=== PATIENT | female | born 1980 | race American Indian/Alaskan Native ===

== ENCOUNTER 2016-09-13 19:49 | Emergency (ER) | payer MEDICAID ==
[2016-09-13] MEDS ORDERED: Alum Hydrox/Mag Hydrox/Simeth 15 ML, Lidocaine 2% 15 ML PO ONE ×2 (20:33)
--- NOTE | 2016-09-13 20:37 | EDM.PDOC ---
ED HPI GI/ABDOMINAL - General Chief Complaint: Chest Pain Stated Complaint: CHEST PAINS Time Seen by Provider: 09/13/16 20:27 Source: Reports: Patient, RN notes reviewed History Limitations: Reports: No limitations - History of Present Illness INITIAL COMMENTS - FREE TEXT/NARRATIVE: 36-year-old female presents emergency department day complaint of epigastric pain, chest pain she states it started about 4:30 this afternoon she had eaten approximately an hour prior he does have a history of a Corie fundoplication as well as extensive history of reflux. After her Corie the use of reflux medication was stopped. 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: Endocrine/Metabolic History: Reports: Obesity/BMI 30+ - Infectious Disease History Infectious Disease History: Reports: Chicken pox - Past Surgical History GI Surgical History: Reports: EGD, Corie fundoplication Other GI Surgeries/Procedures: Corie July 2015 Female Surgical History: Reports: section Endocrine Surgical History: Reports: None Social & Family History - Family History Cardiac: Reports: High cholesterol, Hypertension, [place], Stent Respiratory: Reports: Asthma, COPD OBGYN: Reports: Neurological: Reports: CVA Endocrine/Metabolic: Reports: Diabetes, type I, Obesity/MBI 30+ Dermatologic: Reports: Other (see below) Other Dermatologic Family History: allergy to the sun Oncologic: Reports: Lung - Tobacco Use Smoking Status *Q: Never Smoker Used Tobacco, but Quit: Yes Month Tobacco Last Used: may Second Hand Smoke Exposure: No - Caffeine Use Caffeine Use: Reports: Coffee Caffeine Use Comment: rarely - Alcohol Use Days Per Week of Alcohol Use: 1 Number of Drinks Per Day: 4 Total Drinks Per Week: 4 - Recreational Drug Use Recreational Drug Use: No ED ROS GENERAL - Review of Systems Review Of Systems: See Below Constitutional: Reports: no symptoms HEENT: Reports: No symptoms Respiratory: Reports: No Symptoms Cardiovascular: Reports: No symptoms GI/Abdominal: Reports: Abdominal pain, Black stool. Denies: Nausea, Vomiting : Reports: no symptoms Musculoskeletal: Reports: no symptoms ED EXAM, GI/ABD - Physical Exam Exam: See Below Text/Narrative:: General: Female, mild discomfort secondary to abdominal pain, alert and oriented x3 HEENT: head is atraumatic normocephalic, eyes pupils equal round reactive to light, sclera clear no conjunctivitis appreciated. Ears tympanic membranes clear and gutierrez landmarks and light reflex are present bilaterally canals are clear. Nose no septal deviation, nares are clear, no blood present. Mouth mucosa is moist and pink no erythema or exudate noted in soft palate, tongue is midline uvula is midline, dentition is intact. Neck: Supple no thyromegaly no tracheal deviation. Nodes: Cervical nodes subclavicular nodes nontender no palpable lymphadenopathy noted. Lungs: clear to auscultation bilaterally with symmetrical respirations, no adventitious noise appreciated. CV: Regular rate and rhythm S1 and S2 appreciated no murmurs rubs or gallops noted. Abdomen: Soft, epigastric tenderness, no palpable masses or organomegaly appreciated, no distention no guarding bowel sounds are present, . Neuro: Cranial nerves II through XII grossly intact Skin: Warm and dry, intact Extremities: No lower extremity edema appreciated, . Course - Vital Signs Last Recorded V/S: Last Vital Signs Temp 98.3 F 09/13/16 19:57 Pulse 68 09/13/16 21:06 Resp 16 09/13/16 21:06 BP 143/83 H 09/13/16 21:06 Pulse Ox 97 09/13/16 21:06 - Orders/Labs/Meds Orders: Active Orders 24 hr Category Date Time Status EKG Documentation Completion [RC] ASDIRECTED Care 09/13/16 20:33 Active EKG 12 Lead [EK] Stat Ther 09/13/16 20:33 Ordered Labs: Laboratory Tests 09/13/16 09/13/16 Range/Units 20:57 20:57 WBC 9.9 (4.5-11.0) K/uL RBC 3.79 (3.30-5.50) M/uL Hgb 12.3 (12.0-15.0) g/dL Hct 37.3 (36.0-48.0) % MCV 98 (80-98) fL MCH 33 H (27-31) pg MCHC 33 (32-36) % Plt Count 265 (150-400) K/uL Neut % (Auto) 65 (36-66) % Lymph % (Auto) 26 (24-44) % Crockett % (Auto) 8 H (2-6) % Eos % (Auto) 1 L (2-4) % Baso % (Auto) 0 (0-1) % Sodium 139 L (140-148) mmol/L Potassium 3.4 L (3.6-5.2) mmol/L Chloride 105 (100-108) mmol/L Carbon Dioxide 24 (21-32) mmol/L Anion Gap 13.4 (5.0-14.0) mmol/L BUN 10 (7-18) mg/dL Creatinine 0.6 (0.6-1.0) mg/dL Est Cr Clr Drug Dosing 121.35 mL/min Estimated GFR (MDRD) > 60 (>60) Glucose 85 (74-106) mg/dL Calcium 8.3 L (8.5-10.1) mg/dL Total Bilirubin 0.3 (0.2-1.0) mg/dL AST 32 (15-37) U/L ALT 31 (12-78) U/L Alkaline Phosphatase 113 (46-116) U/L Troponin I < 0.017 (0.000-0.056) ng/mL Total Protein 7.1 (6.4-8.2) g/dL Albumin 3.6 (3.4-5.0) g/dL Globulin 3.5 (2.3-3.5) g/dL Albumin/Globulin Ratio 1.0 L (1.2-2.2) Lipase 174 (73-393) U/L Meds: Medications Discontinued Medications Generic Name Dose Route Start Last Admin Trade Name Freq PRN Reason Stop Dose Admin Al Hydroxide/Mg Hydroxide 15 0 ml 09/13/16 20:33 09/13/16 20:41 ml/ Lidocaine HCl 15 ml PO 09/13/16 20:34 30 ml ONETIME ONE Administration Departure - Departure Time of Disposition: 21:53 Disposition: Home, Self-Care 01 Condition: good Clinical Impression: Epigastric abdominal pain Forms: ED Department Discharge Additional Instructions: Use your acid suppression pills at home, please report to the outpatient surgery area for an upper endoscopy with Dr. Yadav tomorrow morning - My Orders Last 24 Hours: My Active Orders 09/13/16 20:33 EKG Documentation Completion [RC] ASDIRECTED EKG 12 Lead [EK] Stat - Assessment/Plan Last 24 Hours: My Active Orders 09/13/16 20:33 EKG Documentation Completion [RC] ASDIRECTED EKG 12 Lead [EK] Stat Plan: Assessment Acuity = acute Site and laterality = epigastric abdominal pain complicated patient with known history of Corie fundoplication Etiology = suspicious for peptic ulcer disease Manifestations = black tarry stools Location of injury = home Lab values = CBC unremarkable sodium low at 1396 hyponatremia potassium low at 2.4 consistent hypokalemia, troponin is negative EKG demonstrates a sinus rhythm no ST changes Plan Discussed case with Dr. 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 This note was dictated using saambaa voice recognition software please call with any questions.
[2016-09-13 21:08] VITALS: BP 143/83
== END 2016-09-13 22:07 | disposition home or self-care (01) ==
LOC: JP.ED 19:49
DX: R10.13 Epigastric pain (principal); E66.9 Obesity, unspecified; Z68.38 Body mass index [BMI] 38.0-38.9, adult; Z98.890 Other specified postprocedural states
CPT/HCPCS: 36415; 80053; 83690; 84484; 85025; 93005; 99285; A9270; 93010; 99283

== ENCOUNTER 2016-09-14 07:43 | Day surgery (SDC) | payer MEDICAID ==
[2016-09-14] MEDS ORDERED: Midazolam 1 MG/ML 2 ML SDV ONE (07:59)
[2016-09-14] MEDS ORDERED: Propofol 200 MG/20 ML SDV ONE (07:59)
[2016-09-14] MEDS ORDERED: fentaNYL 100 MCG/2 ML SDV ONE (07:59)
[2016-09-14] MEDS ORDERED: Dextrose 5%-Lactated Ringers 1,000 ML IV SCH (08:30)
[2016-09-14] MEDS ORDERED: Glycopyrrolate 0.2 MG/ML 2 ML SYRINGE IVPUSH ONE (10:00)
[2016-09-14] MEDS ORDERED: Pantoprazole 40 MG Vial IVPUSH ONE (12:15)
[2016-09-14 13:17] VITALS: BP 139/88
--- NOTE | 2016-09-19 12:56 | OR ---
DATE OF PROCEDURE: 09/14/2016 PREOPERATIVE DIAGNOSIS: Epigastric pain with recent gastrointestinal bleeding. POSTOPERATIVE DIAGNOSIS: Erosive gastritis. OPERATIVE PROCEDURE: Esophagogastroduodenoscopy with biopsies of antrum for CLOtest. ANESTHESIA: IV sedation. INDICATION FOR PROCEDURE: This 36-year-old female presenting with some ongoing epigastric pain along with some chest pain. She has a history of Corie fundoplication for reflux, which generally has been successful and she had not been on any antisecretory medication. Does note that she has had some intermittent black tarry stools over the last month. The plan is to proceed with an upper GI endoscopy with biopsies as indicated. Potential risks including bleeding and perforation were discussed, and the patient wishes to proceed. DETAILS OF PROCEDURE: The patient was taken to the operating room and placed in the left lateral decubitus position. IV sedation was administered, after which the upper GI endoscope was passed orally through the length of the esophagus into the stomach with retroflexion view of the fundus, thereafter through the pyloric channel and into the proximal duodenum. Findings included a normal hypopharynx, larynx, upper esophageal sphincter, and esophageal body. At the EG junction, the patient was noted to have an intact Corie effect. There is no significant inflammation at the distal esophagus within the stomach. The proximal stomach was unremarkable apart from the Corie effect and then within the antrum, however, there was diffuse redness with several small erosions seen presently covered with fibrinous exudate. No blood or bleeding was seen, but these obviously would be likely source of some recent bleeding, black tarry stools as well as her epigastric discomfort. The pyloric channel and the proximal duodenum were unremarkable and at that point the biopsies were obtained from the antrum and sent for CLOtest for H. pylori. Minimal bleeding from the biopsy site was seen and the procedure was then concluded. The patient will be set up to get Protonix 40 mg IV in the recovery room and then start Protonix 40 mg daily and set up then to followup with DEBBIE Marques in [facility] in about 2 weeks. Luis Yadav MD /[id number]
== END 2016-09-14 13:22 | disposition home or self-care (01) ==
LOC: JP.SDS 07:43
PROVIDERS: ATTEND Surgery
PROC: 0DB78ZX Excision of Stomach, Pylorus, Via Natural or Artificial Opening Endoscopic, Diagnostic (ICD-10-PCS; principal; 2016-09-14)
DX: K29.61 Other gastritis with bleeding (principal)
CPT/HCPCS: 43239; 87081; C9113; J2250; J2704; J3010; J7042

== ENCOUNTER 2017-06-27 19:17 | Emergency (ER) | payer MEDICAID ==
[2017-06-27 19:34] VITALS: BP 151/78
--- NOTE | 2017-06-27 19:53 | EDM.PDOC ---
ED HPI GENERAL MEDICAL PROBLEM - General Chief Complaint: ENT Problem Stated Complaint: DRY SOCKET Time Seen by Provider: 06/27/17 19:31 Source of Information: Reports: Patient - History of Present Illness INITIAL COMMENTS - FREE TEXT/NARRATIVE: Dental Pain; this is a 37 year old female present to ER for evaluation of dental pain. She had a dental extraction on 06/21/2017, was doing well until Tuesday, had increased pain. concerns of "dry socket". reports she is a smoker. denies fever or chills. Onset: Gradual Duration: Day(s): Location: Reports: Other (dental pain) Quality: Reports: Same as Previous Episode (feels like a similar dry socker) Severity: Moderate Improves with: Reports: Medication Worsens with: Reports: Eating Associated Symptoms: Reports: No Other Symptoms Treatments RN INTERN: Reports: Acetaminophen, NSAIDS Right Upper Tooth/Teeth Pain Score (Numeric/FACES): 8 - Related Data Allergies Allergy/AdvReac Type Severity Reaction Status Date / Time No Known Allergies Allergy Verified 06/27/17 19:31 Home Meds: Home Meds Acetaminophen [Tylenol] 650 mg PO ASDIRECTED 06/27/17 [History] Past Medical History - Past Health History Medical/Surgical History: Denies Medical/Surgical History HEENT History: Reports: Impaired Vision Other HEENT History: wears glasses Gastrointestinal History: Reports: Gastritis, GERD Genitourinary History: Reports: 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: Endocrine/Metabolic History: Reports: Obesity/BMI 30+ - Infectious Disease History Infectious Disease History: Reports: Chicken Pox, Measles - Past Surgical History GI Surgical History: Reports: EGD, Corie Fundoplication Female Surgical History: Reports: Section Endocrine Surgical History: Reports: None Social & Family History - Family History Cardiac: Reports: High Cholesterol, Hypertension, [place], Stent Respiratory: Reports: Asthma, COPD OBGYN: Reports: Neurological: Reports: CVA Endocrine/Metabolic: Reports: Diabetes, Type I, Obesity/MBI 30+ Dermatologic: Reports: Other (See Below) Other Dermatologic Family History: allergy to the sun Oncologic: Reports: Lung - Tobacco Use Smoking Status *Q: Heavy Tobacco Smoker Years of Tobacco use: 5 Packs/Tins Daily: 0.5 Used Tobacco, but Quit: Yes Month Tobacco Last Used: May Second Hand Smoke Exposure: Yes - Caffeine Use Caffeine Use: Reports: Coffee, Energy Drinks, Soda Caffeine Use Comment: rarely - Alcohol Use Days Per Week of Alcohol Use: 1 Number of Drinks Per Day: 4 Total Drinks Per Week: 4 - Recreational Drug Use Recreational Drug Use: No ED ROS ENT - Review of Systems Review Of Systems: See Below Constitutional: Reports: Other (dental pain) HEENT: Reports: Dental Pain Respiratory: Reports: No Symptoms Cardiovascular: Reports: No Symptoms GI/Abdominal: Reports: No Symptoms Skin: Reports: No Symptoms Neurological: Reports: No Symptoms Psychiatric: Reports: No Symptoms Hematologic/Lymphatic: Reports: No Symptoms Immunologic: Reports: No Symptoms ED EXAM, ENT - Physical Exam Exam: See Below Exam Limited By: No Limitations General Appearance: Alert, WD/WN, No Apparent Distress Eye Exam: Bilateral Eye: Normal Inspection Ears: Normal External Exam Nose: Normal Inspection Mouth/Throat: Other (extraction noted to right upper molar, area is firm, pink, no drainage noted. no clot is seen at extraction point. tender to exam. ) Head: Atraumatic, Normocephalic Neck: Normal Inspection, Supple, Non-Tender Respiratory/Chest: No Respiratory Distress Neurological: Alert, No Motor/Sensory Deficits Psychiatric: Normal Affect, Normal Mood Skin: Warm Lymphatic: No Adenopathy Course - Vital Signs Last Recorded V/S: Last Vital Signs Temp 36.1 C 06/27/17 19:35 Pulse 63 06/27/17 19:35 Resp 18 06/27/17 19:35 BP 151/78 H 06/27/17 19:35 Pulse Ox 99 06/27/17 19:35 - Re-Assessments/Exams Free Text/Narrative Re-Assessment/Exam: 06/27/17 20:07 will give hydrocodone for pain control, continue NSAIDS, referral to [facility] in am. Departure - Departure Time of Disposition: 20:08 Disposition: Home, Self-Care 01 Condition: Good Clinical Impression: Pain, dental - Discharge Information Referrals: PCP,None [Primary Care Provider] - Forms: ED Department Discharge Care Plan Goals: Dental Pain -Hydrocodone 5-325mg take one tablet every 4 to 6 hr prn pain#4 -continue Motrin every 8 hours as needed for pain avoid smoking, drinking out of straw, flushing with solution. leave alone til evaluated by Dentist referral to [facility] in am for evaluation and treatmetn. - Problem List & Annotations (1) Pain, dental SNOMED Code(s): 26907952 Code(s): K08.89 - OTHER SPECIFIED DISORDERS OF TEETH AND SUPPORTING STRUCTURES Status: Acute Priority: Medium Current Visit: Yes - Problem List Review Problem List Initiated/Reviewed/Updated: Yes - Assessment/Plan Plan: Dental Pain -Hydrocodone 5-325mg take one tablet every 4 to 6 hr prn pain#4 -continue Motrin every 8 hours as needed for pain avoid smoking, drinking out of straw, flushing with solution. leave alone til evaluated by Dentist referral to [facility] in am for evaluation and treatmetn.
== END 2017-06-27 20:06 | disposition home or self-care (01) ==
LOC: JP.ED 19:17
DX: K08.89 Other specified disorders of teeth and supporting structures (principal); Z87.891 Personal history of nicotine dependence
CPT/HCPCS: 99283

== ENCOUNTER → 2020-03-07 | Day surgery (SDC) | payer MEDICAID ==
[~2020-03-07] MED LIST: Dextrose 5%-Lactated Ringers 1,000 ML IV SCH; Midazolam 1 MG/ML 2 ML SDV ONE; Propofol 200 MG/20 ML SDV ONE; fentaNYL 100 MCG/2 ML SDV ONE
[2020-03-07 12:02] VITALS: BP 134/76; PULSE 74
--- NOTE | 2020-03-16 13:01 | OR ---
DATE OF PROCEDURE: 03/07/2020 SURGEON: Luis Yadav MD PREOPERATIVE DIAGNOSIS: Upper abdominal pain. POSTOPERATIVE DIAGNOSES: 1. Upper abdominal pain associated with recent Corie fundoplication with large amount of retained gastric bile extending up into the esophagus. 2. Diffuse likely viral-related gastritis. OPERATIVE PROCEDURE: Esophagogastroduodenoscopy with antral biopsies for CLOtest. ANESTHESIA: IV sedation. INDICATION FOR PROCEDURE: This is a 40-year-old status post previous Corie fundoplication. Recently, she has had increasing problems with upper abdominal pain. She was just now recently started on Protonix 40 mg a day. Plan is to proceed with upper GI endoscopy with biopsies as indicated. Potential risks including bleeding and perforation were discussed, and the patient wishes to proceed. PROCEDURE IN DETAIL: The patient was taken to the operative room and placed in a left lateral decubitus position. IV sedation was administered, after which the upper GI endoscope was passed orally through the length of the esophagus into the stomach with retroflexion view of the fundus, and thereafter through the pyloric channel into the proximal duodenum. Findings include normal hypopharynx, larynx, upper esophageal sphincter, and esophageal body. Within the distal esophagus, there was some retained bile. The patient had an intact fundoplication. On retroflexion within the stomach, this appeared to be somewhat loosened, but otherwise still intact. There was quite a bit of bile present within the stomach consistent with some probable component of delayed gastric emptying. There is more or less diffuse gastritis likely related to viral being present. Otherwise, there were no erosions or ulcers, and the pyloric channel and visualized portions of the duodenum were unremarkable. At this point, biopsies obtained from the antrum and sent for CLOtest for H pylori. Minimal bleeding from the biopsy sites was seen and the procedure was then concluded. We will see the patient back on 03/12 to discuss treatment options and further evaluate the patient based on her history and clinical course with restart of the Protonix. Luis Yadav MD /[id number]
== END ==
LOC: JP.SDS 08:07
PROVIDERS: ATTEND Surgery
DX: K31.89 Other diseases of stomach and duodenum (principal); Z98.84 Bariatric surgery status; E66.01 Morbid (severe) obesity due to excess calories; Z68.42 Body mass index [BMI] 45.0-49.9, adult
CPT/HCPCS: 43239; 81025; 87081; J2250; J2704; J3010; J7121

== ENCOUNTER 2022-03-07 20:40 | Emergency (ER) | payer MEDICAID ==
[2022-03-07 21:49] VITALS: BP 153/83; PULSE 76
== END 2022-03-07 22:30 | disposition home or self-care (01) ==
LOC: JP.ED 20:40
DX: H66.001 Acute suppurative otitis media without spontaneous rupture of ear drum, right ear (principal); E66.9 Obesity, unspecified; Z68.38 Body mass index [BMI] 38.0-38.9, adult; Z87.891 Personal history of nicotine dependence; Z20.822 Contact with and (suspected) exposure to COVID-19
CPT/HCPCS: 99283; U0002